=== PATIENT | male | born 1965 | race Caucasian/White ===

== ENCOUNTER 2022-03-20 09:47 | Emergency (ER) | payer BC ==
[~2022-03-20] VITALS: Ht 193 cm; Wt 86.2 kg
[2022-03-20 09:57] VITALS: BP 154/83
--- NOTE | 2022-03-20 10:54 | NUR ---
57 y/o male, c/o lower back pain that started this morning. denies dysuria, hematuria, injury, trauma, n/v/d, abd pain or any overexertion. a&ox4, ambulates with steady gait. pmh: htn nka
[2022-03-20] MEDS ORDERED: NAPR-54 PO (12:31)
[2022-03-20 12:33] LABS: APPEARANCE,URINE CLEAR (CLEAR); BILIRUBIN,URINE NEGATIVE (NEGATIVE); BLOOD, URINE NEGATIVE (NEGATIVE); COLOR,URINE YELLOW (YELLOW); LEUKOCYTE ESTERASE ,URINE NEGATIVE (NEGATIVE); NITRITE, URINE NEGATIVE (NEGATIVE); UGLUCOSE NEGATIVE (NEGATIVE)
[2022-03-20 12:43] VITALS: BP 154/83
--- NOTE | 2022-03-20 12:44 | NUR ---
Patient discharged with v/s stable. Written and verbal after care instructions given and explained. Patient alert, oriented and verbalized understanding of instructions. Ambulatory with steady gait. All questions addressed prior to discharge. ID band removed. Patient advised to follow up with PMD. Rx of naproxen (sent) given. Patient educated on indication of medication including possible reaction and side effects. Opportunity to ask questions provided and answered.
== END 2022-03-20 12:43 | disposition home or self-care (01) ==
LOC: MED 09:47
DX: M54.50 Low back pain, unspecified (principal); I10 Essential (primary) hypertension; Z79.899 Other long term (current) drug therapy
CPT/HCPCS: 81003; 99283

== ENCOUNTER 2023-07-10 16:34 | Emergency (ER) | payer BC, OTHER ==
[~2023-07-10] VITALS: Ht 190.5 cm; Wt 108.9 kg
[~2023-07-10 16:34] MED LIST: NAPR-54 PO
[2023-07-10 16:40] VITALS: BP 121/75; PULSE 119; RESP 18; TEMP 98.3; O2SAT 96
[2023-07-10] MEDS: IBUPROFEN 600 MG TAB PO ONE (17:41)
[2023-07-10] MEDS ORDERED: ACET-8905 PO (18:15)
[2023-07-10] MEDS ORDERED: NAPR-54 PO (18:15)
== END 2023-07-10 18:25 | disposition home or self-care (01) ==
LOC: MED 16:34
DX: S92.355A Nondisplaced fracture of fifth metatarsal bone, left foot, initial encounter for closed fracture (principal); I10 Essential (primary) hypertension; Z79.899 Other long term (current) drug therapy; W18.30XA Fall on same level, unspecified, initial encounter; Y93.89 Activity, other specified; Y92.89 Other specified places as the place of occurrence of the external cause; Y99.8 Other external cause status
CPT/HCPCS: 29515; 73610; 73630; 99284